=== PATIENT | female | born 1970 | race Two or more races ===

== ENCOUNTER 2020-10-18 22:11 | Emergency (ER) | payer OTHER ==
[~2020-10-18] VITALS: Ht 167.6 cm; Wt 84.0 kg
[2020-10-18] MEDS ORDERED: LEVETIRACETAM 500MG TABLET PO ONE (22:30)
[2020-10-18] MEDS ORDERED: GABAPENTIN 300MG CAPSULE PO ONE (22:30)
[2020-10-18 23:09] LABS: BASOPHILS % 0.3 % (0.0-2.0); EOSINOPHILS % 1.2 % (0.0-5.0); HEMATOCRIT. 32.4 % (36.0-48.0); HEMOGLOBIN. 11.5 g/dL (12.0-16.0); LYMPHOCYTES % 21.5 % (20.0-50.0); MEAN CORPUSCULAR HEMOGLOBIN 32.3 pg (28.0-32.0); MEAN CORPUSCULAR VOLUME 91.4 fL (81.0-99.0); MEAN PLATELET VOLUME 8.1 fl (7.4-10.4); MONOCYTES % 13.1 % (2.0-8.0); NEUTROPHILS % 63.9 % (40.0-76.0); PLATELET 94 x1000/uL (130-400); RED BLOOD CELL COUNT 3.55 mill/uL (4.2-5.4); RED CELL DISTRIBUTION WIDTH 15.8 % (11.6-14.6)
[2020-10-18 23:17] LABS: CHLORIDE 107 mEq/L (98-107); HCG SCREEN NEGATIVE
[2020-10-18 23:21] LABS: ETHANOL BLOOD < 10 mg/dL
[2020-10-19] MEDS ORDERED: POTASSIUM CHLORIDE 20MEQ TABLET SR PO ONE
[2020-10-19 01:12] VITALS: BP 128/81
[2020-10-19] MEDS ORDERED: KEPP500 MT (01:29)
[2020-10-19] MEDS ORDERED: GABA100C MT (01:30)
== END 2020-10-19 02:23 | disposition home or self-care (01) ==
LOC: ER 22:23
DX: Z76.0 Encounter for issue of repeat prescription (principal); E87.6 Hypokalemia; F17.290 Nicotine dependence, other tobacco product, uncomplicated; Z86.59 Personal history of other mental and behavioral disorders
CPT/HCPCS: 36415; 76705; 80053; 80307; 80320; 80329; 84703; 85025; 99284; 99406; G0480